=== PATIENT | male | born 1995 | race African-American/Black ===

== ENCOUNTER 2017-05-29 17:40 | Emergency (ER) | payer SELFPAY ==
[~2017-05-29] VITALS: Ht 167.6 cm; Wt 81.6 kg
[2017-05-29] MEDS ORDERED: IBUPROFEN600 MG ORAL (18:21)
[2017-05-29 18:48] VITALS: BP 117/75
--- NOTE | 2017-05-29 19:21 | Emergency Room Report ---
History of Present Illness General Chief Complaint: Pain Source: Patient Present Illness HPI 21-year-old male, presenting with 7 months of right knee pain. Patient states that he has a bump in his knee that gets bigger or smaller according to when he exercises. Currently complaining of pain. Did not fall no trauma. No other complaints Allergies: Coded Allergies: No Known Allergies (Unverified , 05/29/17) Patient History Past Medical History: see triage record Past Surgical History: none Pertinent Family History: none Reviewed Nursing Documentation: PMH: Agreed, PSxH: Agreed Nursing Documentation-PMH Past Medical History: No Stated History Review of Systems All Other Systems: negative except mentioned in HPI Physical Exam Vital Signs Date Time Temp Pulse Resp B/P (MAP) Pulse Ox O2 Delivery O2 Flow Rate FiO2 05/29/17 17:48 97.7 75 14 117/75 96 Room Air 97.7 Sp02 EP Interpretation: reviewed, normal General Appearance: normal inspection, well appearing, no apparent distress, alert, GCS 15, non-toxic Head: normocephalic, atraumatic Eyes: bilateral eye normal inspection, bilateral eye PERRL, bilateral eye EOMI ENT: normal ENT inspection, normal pharynx, normal voice, moist mucus membranes Neck: normal inspection, full range of motion, supple Respiratory: normal inspection, lungs clear, normal breath sounds, no respiratory distress, no retraction, no wheezing, speaking full sentences, chest symmetrical Cardiovascular #1: normal inspection, regular rate, rhythm, no edema, normal capillary refill Cardiovascular #2: 2+ radial (R), 2+ radial (L) Gastrointestinal: normal inspection, non tender, soft, non-distended, no guarding Genitourinary: no CVA tenderness Musculoskeletal: other - Lateral right side of right knee, with bony tenderness and bony outgrowth of proximal tibia, no warmth no erythema, full range of motion of knee Neurologic: normal inspection, alert, oriented x3, responsive, motor strength/ tone normal, sensory intact, normal gait, speech normal Psychiatric: normal inspection, judgement/insight normal, memory normal Skin: normal inspection, normal color, no rash, warm/dry, well hydrated, normal turgor Medical Decision Making Diagnostic Impression: Primary Impression: Chronic knee pain ER Course 21-year-old male with chronic knee pain DDX: Chronic knee pain, has been going on for 7 months, possible Michelet jackson's disease, versus bony osteophyte/chondroma Plan: Pain control with motrin No imaging indicated at this time ER course: Patient reports improvement of pain with motrin. Disposition: Patient is to be discharged home with a prescription of motrin. Patient educated to rest, ice, and elevate extremity and to avoid vigorous activity. Strict precautions discussed with patient on when to return to the emergency room including increased redness or swelling joints, increased pain/swelling of extremity, fever or chills, which could indicate severe illness. Patient is to follow up with their primary care doctor within 5 days. Patient also instructed to follow up with an orthopedic doctor if continuing to have mild/moderate pain as he may need further outpatient imaging. Patient agrees with plan. Please note that this Emergency Department Report was dictated using [employer] screen printer technology software, occasionally this can lead to erroneous entry secondary to interpretation by the dictation equipment. Last Vital Signs Date Time Temp Pulse Resp B/P (MAP) Pulse Ox O2 Delivery O2 Flow Rate FiO2 05/29/17 18:48 97.7 75 14 117/75 96 Room Air 97.7 Disposition: HOME, SELF-CARE Condition: Improved Scripts Ibuprofen* (MOTRIN*) 600 Mg Tablet 600 MG ORAL Q8H Y for For Pain, #30 TAB 0 Refills Prov: Merlin Gonzalez M.D. 05/29/17 Referrals: NOT CHOSEN [facility]/,REFERRING (PCP) Patient Instructions: Knee Pain Additional Instructions: PLEASE FOLLOW UP WITH AN ORTHOPEDIC DOCTOR IN 1 WEEK Merlin Gonzalez M.D. May 29, 2017 19:21
== END 2017-05-29 19:00 | disposition home or self-care (01) ==
LOC: EMR 18:32
DX: M25.561 Pain in right knee (principal); G89.29 Other chronic pain
CPT/HCPCS: 99283